=== PATIENT | female | born 1960 | race Caucasian/White ===

== ENCOUNTER 2024-10-25 05:24 | Day surgery (SDC) | payer OTHER ==
[2024-10-25] MEDS ORDERED: Propofol 200 MG/20 ML SDV IV ONE (05:25)
[2024-10-25] MEDS ORDERED: Lactated Ringers 1,000 ML IV ONE (05:25)
[2024-10-25] MEDS ORDERED: Propofol 200 MG/20 ML SDV ONE (05:52)
[2024-10-25] MEDS: Lactated Ringers 1,000 ML IV SCH (06:00)
== END 2024-10-25 08:09 | disposition home or self-care (01) ==
LOC: DL.ENDO 05:24
PROVIDERS: ATTEND Internal Medicine Gastroenterology
DX: Z12.11 Encounter for screening for malignant neoplasm of colon (principal); N30.00 Acute cystitis without hematuria; M81.0 Age-related osteoporosis without current pathological fracture
CPT/HCPCS: 45378; J2003; J2704; J7120; 00812